=== PATIENT | male | born 1995 | race Hispanic/Latino ===

== ENCOUNTER 2018-11-16 08:24 | Emergency (ER) | payer OTHER | END 2018-11-16 10:10 | disposition home or self-care (01) | LOC: EDH 08:24 | DX: T14.8XXA Other injury of unspecified body region, initial encounter (principal); V49.59XA Passenger injured in collision with other motor vehicles in traffic accident, initial encounter; Y93.89 Activity, other specified; Y92.89 Other specified places as the place of occurrence of the external cause; Y99.8 Other external cause status ==